=== PATIENT | female | born 1965 | race Two or more races ===

== ENCOUNTER 2018-07-18 00:27 | Emergency (ER) | payer OTHER ==
[~2018-07-18] VITALS: Ht 160 cm; Wt 84.4 kg
[2018-07-18 01:18] LABS: BASO # 0.1 x10^3/uL (0.0-0.2); BASO % 1 % (0-3); EOS # 0.2 x10^3/uL (0.0-0.7); EOS % 3 % (0-3); HEMATOCRIT 39.5 % (36.0-47.0); HEMOGLOBIN 13.2 g/dL (12.0-15.5); LYMPH # 2.9 x10^3/uL (1.0-4.8); LYMPH % 38 % (24-48); MEAN CORPUSCULAR HEMOGLOBIN 25 pg (25-35); MEAN CORPUSCULAR HGB CONC 33 g/dL (31-37); MEAN CORPUSCULAR VOLUME 74 fL (79-100); MONO # 0.5 x10^3/uL (0.0-1.1); MONO % 7 % (0-9); NEUT # 3.9 x10^3uL (1.8-7.7); NEUT % 51 % (31-73); PLATELET COUNT 303 x10^3/uL (140-400); RED BLOOD COUNT 5.31 x10^6/uL (3.50-5.40); RED CELL DISTRIBUTION WIDTH 18.4 % (11.5-14.5); WHITE BLOOD COUNT 7.6 x10^3/uL (4.0-11.0)
[2018-07-18 01:19] LABS: BILIRUBIN,URINE NEGATIVE (NEG); CLARITY,URINE CLEAR; COLOR,URINE YELLOW; NITRITE,URINE NEGATIVE (NEG); PROTEIN,URINE NEGATIVE (NEG-TRACE); UROBILINOGEN,URINE 0.2 mg/dL (0.2 mg/dL)
[2018-07-18 01:24] LABS: BACTERIA,URINE 0 /HPF (0-FEW); RBC,URINE 0 /HPF (0-2); WBC,URINE 0 /HPF (0-4)
[2018-07-18 01:25] LABS: SQUAMOUS EPITHELIAL CELL,UR MOD /LPF
[2018-07-18 01:27] LABS: CALCIUM 9.1 mg/dL (8.5-10.1); CREATININE 0.8 mg/dL (0.6-1.0); POTASSIUM 3.6 mmol/L (3.5-5.1)
[2018-07-18 01:32] LABS: ALBUMIN 3.7 g/dL (3.4-5.0); DIRECT BILIRUBIN 0.1 mg/dL (0.0-0.2); TOTAL BILIRUBIN 0.2 mg/dL (0.2-1.0); TOTAL PROTEIN 7.4 g/dL (6.4-8.2)
--- NOTE | 2018-07-18 02:38 | PHYS DOC ---
Past Medical History Past Medical History: Migraines Past Surgical History: Other Additional Past Surgical Histo: HERNIA REPAIR Alcohol Use: None Drug Use: None Adult General Chief Complaint Chief Complaint: ABDOMINAL PAIN HPI HPI Patient is a 52 year old female who presents with abdominal pain. Patient had onset of upper abdominal pain around 9:30 this evening after she ate some sweet potatoes. She did not have any nausea or vomiting. Pain persisted so she took some ibuprofen which did mildly improve her symptoms. No recent fever or chills. She is having normal bowel movements. Her only past or trouble history is for hernia repair. Patient does not have a prior history of similar symptoms. She denies reflux symptoms. No chest pain or shortness of breath. Review of Systems Review of Systems Constitutional: Denies fever Eyes: Denies change in visual acuity HENT: Denies nasal congestion or sore throat Respiratory: Denies cough or shortness of breath Cardiovascular: No additional information GI: as documented above : Denies dysuria Musculoskeletal: Denies back pain Integument: Denies rash or skin lesions Neurologic: Denies headache Endocrine: Denies polyuria All other systems were reviewed and found to be within normal limits, except as documented in this note. Allergies Allergies Allergies Coded Allergies Type Severity Reaction Last Updated Verified Penicillins Allergy Intermediate 07/18/18 Yes Physical Exam Physical Exam Constitutional: Well developed, well nourished, no acute distress, non-toxic appearance HENT: Normocephalic, atraumatic, bilateral external ears normal, oropharynx moist Eyes: PERRLA, EOMI Neck: Normal range of motion, no tenderness Cardiovascular:Heart rate regular rhythm, no murmur Lungs & Thorax: Bilateral breath sounds clear to auscultation Abdomen: Bowel sounds normal, soft, subjective TTP over RUQ, no guarding or rebound. otherwise normal examination Skin: Warm, dry, no erythema Extremities: No edema Neurologic: Alert and oriented X 3 Psychologic: Affect normal Current Patient Data Vital Signs Vital Signs Date Time Temp Pulse Resp B/P (MAP) Pulse Ox O2 Delivery O2 Flow Rate FiO2 07/18/18 00:33 98.2 77 16 146/87 (106) 99 Room Air 98.2 Lab Values Laboratory Tests Test 07/18/18 00:40 07/18/18 01:10 Urine Collection Type Unknown Urine Color Yellow Urine Clarity Clear Urine pH 6.0 Urine Specific [place] 1.025 Urine Protein Negative mg/dL (NEG-TRACE) Urine Glucose (UA) Negative mg/dL (NEG) Urine Ketones (Stick) Negative mg/dL (NEG) Urine Blood Negative (NEG) Urine Nitrite Negative (NEG) Urine Bilirubin Negative (NEG) Urine Urobilinogen Dipstick 0.2 mg/dL (0.2 mg/dL) Urine Leukocyte Esterase Negative (NEG) Urine RBC 0 /HPF (0-2) Urine WBC 0 /HPF (0-4) Urine Squamous Epithelial Cells Mod /LPF Urine Bacteria 0 /HPF (0-FEW) Urine Mucus Mod /LPF White Blood Count 7.6 x10^3/uL (4.0-11.0) Red Blood Count 5.31 x10^6/uL (3.50-5.40) Hemoglobin 13.2 g/dL (12.0-15.5) Hematocrit 39.5 % (36.0-47.0) Mean Corpuscular Volume 74 fL (79-100) L Mean Corpuscular Hemoglobin 25 pg (25-35) Mean Corpuscular Hemoglobin Concent 33 g/dL (31-37) Red Cell Distribution Width 18.4 % (11.5-14.5) H Platelet Count 303 x10^3/uL (140-400) Neutrophils (%) (Auto) 51 % (31-73) Lymphocytes (%) (Auto) 38 % (24-48) Monocytes (%) (Auto) 7 % (0-9) Eosinophils (%) (Auto) 3 % (0-3) Basophils (%) (Auto) 1 % (0-3) Neutrophils # (Auto) 3.9 x10^3uL (1.8-7.7) Lymphocytes # (Auto) 2.9 x10^3/uL (1.0-4.8) Monocytes # (Auto) 0.5 x10^3/uL (0.0-1.1) Eosinophils # (Auto) 0.2 x10^3/uL (0.0-0.7) Basophils # (Auto) 0.1 x10^3/uL (0.0-0.2) Sodium Level 140 mmol/L (136-145) Potassium Level 3.6 mmol/L (3.5-5.1) Chloride Level 103 mmol/L (98-107) Carbon Dioxide Level 27 mmol/L (21-32) Anion Gap 10 (6-14) Blood Urea Nitrogen 10 mg/dL (7-20) Creatinine 0.8 mg/dL (0.6-1.0) Estimated GFR (Cockcroft-Gault) 75.0 Glucose Level 100 mg/dL (70-99) H Calcium Level 9.1 mg/dL (8.5-10.1) Total Bilirubin 0.2 mg/dL (0.2-1.0) Direct Bilirubin 0.1 mg/dL (0.0-0.2) Aspartate Amino Transferase (AST) 17 U/L (15-37) Alanine Aminotransferase (ALT) 15 U/L (14-59) Alkaline Phosphatase 77 U/L (46-116) Troponin I Quantitative < 0.017 ng/mL (0.000-0.055) Total Protein 7.4 g/dL (6.4-8.2) Albumin 3.7 g/dL (3.4-5.0) Lipase 218 U/L (73-393) Laboratory Tests 07/18/18 01:10 Laboratory Tests 07/18/18 01:10 EKG EKG No STEMI Interpretation Time: 02:55 Radiology/Procedures Radiology/Procedures Ultrasound of the right upper quadrant of the abdomen 07/18/2018 CLINICAL HISTORY: Right upper quadrant abdominal pain after eating. TECHNIQUE: A real-time ultrasound examination of the right upper quadrant of the abdomen was performed. Multiple images were obtained. FINDINGS: The gallbladder is distended. A 1.4 cm gallstone is seen within the neck of the gallbladder. The gallbladder wall thickness is within normal limits. No pericholecystic fluid is seen. The common bile duct measures 5 mm in diameter which is within normal limits. The liver is normal in size measuring 16.7 cm in length. Increased echogenicity of the liver parenchyma is seen consistent with mild fatty infiltration. The visualized portions of pancreas and right kidney are within normal limits. IMPRESSION: 1. Cholelithiasis. 2. Mild fatty infiltration of the liver. Course & Med Decision Making Course & Med Decision Making Pertinent Labs and Imaging studies reviewed. (See chart for details) Patient is evaluated immediately on arrival to her room. She is not in acute distress. Her abdominal exam is overall benign but she does have some subjective tenderness to palpation of the right upper quadrant. She does not have chest pain. Her pain symptoms started after she ate food. Will order ultrasound and standard abdominal pain workup. Also EKG and troponin. 03:00: All results are reviewed and discussed with the patient and her daughter who is assisting with translation. The patient was noted to have a gallstone in the neck of the gallbladder. There were no signs of acute cholecystitis. It is possible that she did have some pain from this after she ate earlier in the evening. Patient is advised that there is no acute indication for surgery but that she may want to consider follow up with general surgeon if her symptoms become recurrent or more severe. She is advised to come back to the ER for any new or worsening symptoms. She is currently pain-free at the time of discharge. Dragon Disclaimer Dragon Disclaimer This electronic medical record was generated, in whole or in part, using a voice recognition dictation system. Departure Departure Disposition: 01 HOME, SELF-CARE Condition: GOOD Referrals: UNKNOWN PCP NAME (PCP) NERIS DONAHUE DO Jul 18, 2018 02:38
--- NOTE | 2018-07-18 02:44 | RAD ---
Ultrasound of the right upper quadrant of the abdomen 07/18/2018 CLINICAL HISTORY: Right upper quadrant abdominal pain after eating. TECHNIQUE: A real-time ultrasound examination of the right upper quadrant of the abdomen was performed. Multiple images were obtained. FINDINGS: The gallbladder is distended. A 1.4 cm gallstone is seen within the neck of the gallbladder. The gallbladder wall thickness is within normal limits. No pericholecystic fluid is seen. The common bile duct measures 5 mm in diameter which is within normal limits. The liver is normal in size measuring 16.7 cm in length. Increased echogenicity of the liver parenchyma is seen consistent with mild fatty infiltration. The visualized portions of pancreas and right kidney are within normal limits. IMPRESSION: 1. Cholelithiasis. 2. Mild fatty infiltration of the liver. Electronically signed by: Marco Latham MD (07/18/2018 2:40 AM) [id number]
[2018-07-18 03:14] VITALS: BP 109/75
--- NOTE | 2018-07-18 04:57 | EKG ---
[facility] [address] [place] [address] Test Date: 2018-07-18 Test Time: 02:51:35 Pat Name: RITA SALINAS Department: Room: Gender: F [employer] Worker: : [id number] Requested By: NERIS DONAHUE Order Number: [id number] Reading MD: Murali Paulino Measurements Intervals [place] Rate: 67 P: 38 UT: 138 QRS: 9 QRSD: 84 T: 12 QT: 426 QTc: 453 Interpretive Statements SINUS RHYTHM NO SPECIFIC ECG ABNORMALITIES RI6.01 No previous ECG available for comparison Electronically Signed On 07-19-2018 9:20:43 [employer] by Murali Paulino
== END 2018-07-18 03:25 | disposition home or self-care (01) ==
LOC: ER 00:27
DX: K80.20 Calculus of gallbladder without cholecystitis without obstruction (principal); K76.0 Fatty (change of) liver, not elsewhere classified; G43.909 Migraine, unspecified, not intractable, without status migrainosus; Z88.0 Allergy status to penicillin
CPT/HCPCS: 36415; 76705; 80048; 80076; 81001; 83690; 84484; 85025; 93005; 99284

== ENCOUNTER → 2019-09-10 | Outpatient (CLI) | payer OTHER ==
--- NOTE | 2019-09-10 13:50 | KCIC ---
Complete abdominal ultrasound 09/10/2019 12:30 PM Clinical History: Abdominal pain, nausea, vomiting Technique: Ultrasound examination of the abdomen was performed, and multiple static images were submitted for review. Comparison: Abdominal ultrasound July 18, 2018 Findings: The visualized portions of the pancreas are within normal limits. The visualized aorta and IVC are unremarkable. Shadowing stone noted in the gallbladder lumen. No evidence of wall thickening or pericholecystic fluid is seen. Liver is normal in size. The liver is normal in echotexture. No intrahepatic biliary ductal dilatation is seen. No focal hepatic lesions are identified. Spleen is grossly unremarkable in appearance, and grossly normal in size. The bilateral kidneys are normal in appearance without evidence of obstructive uropathy, nephrolithiasis, or focal renal lesion. Right kidney measures 10.5 cm in length. Left kidney measures 10.7 cm in length. Impression: Cholelithiasis without sonographic evidence of cholecystitis Electronically signed by: Jagdish Hidalgo MD (09/10/2019 1:47 PM) [id number]
== END | disposition home or self-care (01) ==
LOC: KCIC US 12:00
PROVIDERS: ATTEND Family Medicine
DX: K80.20 Calculus of gallbladder without cholecystitis without obstruction (principal)
CPT/HCPCS: 76700

== ENCOUNTER → 2019-09-21 | Outpatient (CLI) | payer OTHER ==
[~2019-09-21] MED LIST: IOHEXOL 240 MG/ML 50ML VIAL. PO ONE; IOHEXOL 300 MG/ML 100ML VIAL. IV ONE
--- NOTE | 2019-09-21 14:21 | KCIC ---
EXAM: Abdomen and pelvis CT with intravenous contrast. HISTORY: Pain. TECHNIQUE: Computed tomographic images of the abdomen and pelvis were obtained following the administration of 100 cc Omnipaque 300 intravenous contrast. Multiplanar reformatting was performed. *One or more of the following individualized dose reduction techniques were utilized for this examination: 1. Automated exposure control. 2. Adjustment of the mA and/or kV according to patient size. 3. Use of iterative reconstruction technique. COMPARISON: None. FINDINGS: Evaluation of the lower thorax demonstrates no infiltrate or pleural effusion. No hepatic lesion is seen. The gallbladder, pancreas, spleen, adrenal glands and kidneys are unremarkable. The appendix is unremarkable. No abnormally thickened or dilated loop of bowel is seen. The urinary bladder is unremarkable. There is suspected pelvic floor relaxation with possible prolapse. The ovaries are unremarkable. There is no lymphadenopathy. The aorta is normal in caliber. IMPRESSION: No acute abdominal or pelvic finding. Electronically signed by: Yany Mast MD (09/21/2019 2:18 PM) [facility]
== END | disposition home or self-care (01) ==
LOC: KCIC CT 08:58
PROVIDERS: ATTEND Family Medicine
DX: R10.84 Generalized abdominal pain (principal); Z88.0 Allergy status to penicillin
CPT/HCPCS: 74177; Q9966; Q9967